=== PATIENT | female | born 1935 | race Caucasian/White ===

== ENCOUNTER 2017-10-06 21:02 | Inpatient (IN) | payer OTHER ==
[~2017-10-06] VITALS: Ht 160 cm; Wt 39.0 kg
[2017-10-06 21:20] VITALS: BP 148/94
[2017-10-06] MEDS ORDERED: LORAZEPAM 0.5 MG TABLET PO PRN (21:30)
[2017-10-06] MEDS ORDERED: MAG HYDROX/AL HYDROX/SIMETH 30 ML UDC PO PRN (21:30)
[2017-10-06] MEDS ORDERED: MAGNESIUM HYDROXIDE 30 ML UDC PO PRN (21:30)
[2017-10-06] MEDS ORDERED: ACETAMINOPHEN 325 MG TABLET PO PRN (21:30)
--- NOTE | 2017-10-06 21:30 | NUR ---
GPS ADMISSION NOTE, RECEIVED PATIENT FROM [facility]. PATIENT ARRIVED ON THIS UNIT AT 2120 VIA STRETCHER WITH 2 EMT ESCORTS AND PATIENT'S DAUGHTER. PATIENT ADMITTED ON A 5150 HOLD FOR GD. PER HOLD PATIENT CALLED 911 STATING SHE WAS VERY HUNGRY AND COULD NOT TURN OFF MICROWAVE, HAD NOT EATEN IN OVER 30 HOURS AND UNABLE TO OPEN ANY FOOD SHE HAD. ADVISED IT HAD BEEN ONGOING THAT COULD NOT MEET BASIC NEEDS AND WAS PLACED ON HOLD FOR GD. THE 5150 WAS REVIEWED AND THE DOCUMENTATION IN THE 5150 HOLD APPEARS TO REFLECT THE PRESENTATION OF THE PATIENT. UPON FACE TO FACE ASSESSMENT PATIENT IS CURRENTLY SITTING IN BED AWAKE, HAS NO S/S OR COMPLAINTS OF PAIN. PATIENT IS DISPLAYING NO S/S OF APPARENT DISTRESS. PATIENT BREATHING IS UNLABORED WITH EQUAL RISE AND FALL OF THE CHEST. PATIENT IS ALERT AND ORIENTATED X 1 AND 95% ON ROOM AIR. PATIENT ASSISTED WITH TURING AND REPOSITIONING Q2HR AND PRN FOR COMFORT AND CIRCULATION. PATIENT HAS NO NEEDS AT THIS TIME. PATIENT IS NOTED TO BEING CONFUSED, DISORGANIZED, UNCOOPERATIVE WITH ADMISSION AT TIMES REFUSING TO SIGN PAPERWORK. PATIENT IS UNDER THE PSYCHIATRIC CARE OF DR. PATTERSON AND THE MEDICAL CARE OF DR MCMULLEN. PATIENT BELONGINGS WERE INVENTORIED AND CHECKED FOR CONTRABAND. ALL CONTRABAND REMOVED AND STORED IN PATIENT HALLWAY LOCKER. PATIENT ADVANCED DIRECTIVES PREFERENCE, IMMUNIZATIONS QUESTIONER, NECESSARY PAPERWORK, SKIN ASSESSMENT DONE. PT REFUSED MRSA SWAB AND REFUSED PHOTOGRAPH. PATIENT ORIENTATED TO ROOM, FLOOR, AND STAFF WITH ALL QUESTIONS ANSWERED. PATIENT EDUCATED ON THE USE OF THE CALL GALINDO. PATIENT BED SIDE RAILS ARE UP X 2 FOR SAFETY. PATIENT BED IS LOCKED, LOW AND I WILL CONTINUE TO MONITOR THIS PATIENT Q 15 MIN WITH THE HELP OF STAFF TO MAINTAIN SAFETY.
--- NOTE | 2017-10-06 22:30 | NUR ---
GPS RN NOTE: AFTER ADMISSION COMPLETE, PATIENT GIVEN PUDDING SNACK AND PBJ. PATIENT WENT TO SLEEP. BED ALARM ON, SIDE RAILS UP X 2, LOW POSITION. WILL CONTINUE TO MONITOR FOR SAFETY.
[2017-10-06] MEDS ORDERED: NAPH15DR EACHEYE (22:33)
[2017-10-06] MEDS ORDERED: DONE10TA44 PO (22:33)
--- NOTE | 2017-10-07 03:45 | NUR ---
RN NOTE: PT WOKE AND ASKED FOR ASSISTANCE TO EAT SANDWICH. REALITY ORIENTATION PROVIDED. DAUGHTER'S NUMBER PROVIDED TO PT PER HER REQUEST TO CALL HER LATER TODAY. WILL CONTINUE TO MONITOR.
--- NOTE | 2017-10-07 06:30 | NUR ---
GPS RN NOTE: PT REFUSED AM LABS, AND AGAIN REFUSED PIC AND MRSA SWAB. REORIENTED TO UNIT, BUT PT STILL AOX1 AND REPEATS QUESTIONS. GIVEN COMB AT HER REQUEST, SHE BRUSHED HAIR AND THEN WAS GIVEN SNACKS BECAUSE PT TOO HUNGRY TO WAIT FOR BREAKFAST. WILL MONITOR.
[2017-10-07 08:00] VITALS: BP 101/64
[2017-10-07] MEDS ORDERED: NAPHAZOLINE HCL/PHENIR MAL 15 ML BOTTLE EACHEYE SCH (09:00)
[2017-10-07] MEDS: TETRAHYDROZOLINE HCL BOTTLE EACHEYE SCH ×2 (12:36→16:48)
--- NOTE | 2017-10-07 15:20 | NUR ---
INITIAL DISCHARGE PLAN: Per pt and pts daughter Violeta Fish [phone] pt will return home to [address] [place] [address] . Pts daughter will be caring for pt at home. Pts daughter Violeta stated to SW that pt was hospitalized due to pts daughter Kaye not providing pt with her basic needs such as food. Pts daughter Violeta has filed an APS report and case is active. SW will help form a safe and proper discharge in collaboration with .
[2017-10-07 15:59] VITALS: BP 116/76
[2017-10-07 20:09] VITALS: BP 121/66
--- NOTE | 2017-10-07 20:10 | NUR ---
GPS RN NOTE: RECEIVED PATIENT AWAKE AND IN BED AFTER VISIT BY DAUGHTER AND GRANDSON WHO BROUGHT HER FOOD FROM HOME WHICH SHE ATE WELL, NO S/S OR COMPLAINTS OF PAIN AT THIS TIME. PATIENT DISPLAYING NO S/S OF APPARENT DISTRESS AT THIS TIME. PATIENT BREATHING IS UNLABORED WITH EQUAL RISE AND FALL OF THE CHEST. PATIENT ALERT AND ORIENTED X 3 WITH A SPO2 95%. EDUCATED PATIENT ABOUT MEDICATIONS WHICH SHE STATES SHE WILL TAKE SHE WOULD LIKE TO GET HER MEMORY BETTER AND GO HOME. DISORGANIZED BUT COOPERATIVE AND TALKATIVE WHEN ENGAGED. NEEDS REORIENTATION. PATIENT DENIES SUICIDE IDEATIONS AND HOMICIDAL IDEATIONS AT THIS TIME. PATIENT IS AMBULATORY ANDHAS NO NEEDS AT THIS TIME. PATIENT EDUCATED ON THE USE OF THE CALL GALINDO. PATIENT BED SIDE RAILS UP X2 FOR SAFETY, BED IS LOCKED AND LOW WILL CONTINUE TO MONITOR AND MAINTAIN AND MAINTAIN SAFETY.
[2017-10-07] MEDS: DONEPEZIL 5 MG TABLET PO SCH (21:27)
[2017-10-07] MEDS: MIRTAZAPINE 15 MG TABLET PO SCH (22:26)
[2017-10-08 08:00] VITALS: BP 106/69
[2017-10-08] MEDS: TETRAHYDROZOLINE HCL BOTTLE EACHEYE SCH ×3 (09:04→17:10)
[2017-10-08 16:00] VITALS: BP 122/66
[2017-10-08 20:00] VITALS: BP 115/76
[2017-10-08] MEDS: DONEPEZIL 5 MG TABLET PO SCH (21:43)
[2017-10-08] MEDS: MIRTAZAPINE 15 MG TABLET PO SCH (21:43)
[2017-10-09 08:00] VITALS: BP 115/69
[2017-10-09] MEDS: TETRAHYDROZOLINE HCL BOTTLE EACHEYE SCH ×3 (08:53→16:00)
--- NOTE | 2017-10-09 14:19 | NUR ---
GPS/RN PROVIDED FAMILY MEMBER(DAUGHTER) WITH THE REPORT ON THE PT'S MEDICATION TAKEN AT THE HOSPITAL INCLUDING DOSAGE AND ADMINISTRATION TIME REQUESTED. WITHIN THAT TIME, PT'S DAUGHTER APPROACHED THE GLOBAL POSITION SYSTEM TECHNICIAN IN REGARDS TO THE MEDICATIONS AND STATED "I'M NOT SURE HE UNDERSTANDS MY QUESTION". UPON REVIEW OF THE MEDICATIONS, PT'S DAUGHTER BECAME AGITATED AND REQUESTED THAT SHE WANTS THE CARE FOR HER MOM TRANSFERRED TO FEMALE NURSE. THE WHOLE CONVERSATION WAS WITNESSED BY STAFF AT THE NURSING STATION SUCH ROLO/VP [facility] AND GALINA RN(3W)
--- NOTE | 2017-10-09 14:41 | NUR ---
GPS/RN PT'S CARE TRANSFERRED TO [facility] RN
[2017-10-09 16:20] VITALS: BP 104/65
[2017-10-09 20:06] VITALS: BP 114/83
[2017-10-09] MEDS: MIRTAZAPINE 15 MG TABLET PO SCH (21:27)
[2017-10-09] MEDS: DONEPEZIL 5 MG TABLET PO SCH (21:27)
[2017-10-10 08:00] VITALS: BP 116/69
[2017-10-10] MEDS: TETRAHYDROZOLINE HCL BOTTLE EACHEYE SCH ×3 (08:43→17:08)
--- NOTE | 2017-10-10 09:55 | NUR ---
SW received a phone call from MARK NOVAK IS PATIENTS APS WORKER PHONE [phone] who stated that pt needs placement. APS worker informed SW that pts daughters Allie and Kaye have filed for temporary conservatorship and that pts daughter Violeta is not involved with pts care. APS SW stated to SW that Violeta does not have authority to determine discharge needs for pt due to her not being involved with pts care and not considering pts best interest. APS worker also mentioned that pts daughters Allie and Kaye are looking into placement at an assisted living in [place].
--- NOTE | 2017-10-10 09:59 | NUR ---
UR NOTE: JOELLE contacted [email or web address] FUELS ENGINEER AJ DIRECT LINE [phone] FAX# [phone]. JOELLE left AJ a voicemail for call back.
--- NOTE | 2017-10-10 14:04 | NUR ---
JOELLE received phone call from pts daughter Violeta Fish [phone] inquiring about pts discharge plan. SW informed pts daughter that she has been in contact with APS social services designee regarding pts discharge to assisted living. Pts daughter agreed and stated that her sisters are not communicating with her and therefore would like SW to inform her of discharge and plan. SW stated to pts daughter that she would inform her of discharge and plan.
--- NOTE | 2017-10-10 15:40 | NUR ---
SW attempted to contact pts daughter Allie [phone] phone line was busy unable to leave message.
[2017-10-10 16:00] VITALS: BP 100/50
--- NOTE | 2017-10-10 19:30 | NUR ---
GPS RN NOTE, RECEIVED PATIENT AWAKE AND IN BED, NO S/S OR COMPLAINTS OF PAIN AT THIS TIME. PATIENT DISPLAYING NO S/S OF APPARENT DISTRESS AT THIS TIME. PATIENT BREATHING IS UNLABORED WITH EQUAL RISE AND FALL OF THE CHEST. PATIENT ALERT AND ORIENTED X 1 WITH A SPO2 94%. PATIENT IS MED COMPLIANT, DISORGANIZED, CONFUSED, COOPERATIVE, NEEDS REORIENTATION. PATIENT DENIES SUICIDE IDEATIONS AND HOMICIDAL IDEATIONS AT THIS TIME. PATIENT ASSISTED WITH TURNING AND REPOSITIONING Q2HR AND PRN FOR COMFORT AND CIRCULATION. PATIENT HAS NO NEEDS AT THIS TIME. PATIENT EDUCATED ON THE USE OF THE CALL GALINDO. PATIENT BED SIDE RAILS UP X2 FOR SAFETY, BED IS LOCKED AND LOW WILL CONTINUE TO MONITOR AND MAINTAIN AND MAINTAIN SAFETY.
[2017-10-10 19:44] VITALS: BP 115/68
[2017-10-10] MEDS: MIRTAZAPINE 15 MG TABLET PO SCH (22:07)
[2017-10-10] MEDS: QUETIAPINE FUMARATE 25 MG TABLET PO SCH (22:07)
[2017-10-10] MEDS: DONEPEZIL 5 MG TABLET PO SCH (22:07)
[2017-10-11 08:00] VITALS: BP 107/23
[2017-10-11] MEDS: TETRAHYDROZOLINE HCL BOTTLE EACHEYE SCH ×3 (09:00→17:38)
--- NOTE | 2017-10-11 10:05 | NUR ---
SW attempted to contact pts daughter Allie [phone] unable to leave message.
--- NOTE | 2017-10-11 10:06 | NUR ---
UR NOTE: JOELLE was contacted by [facility] WALLPAPER REMOVER STEAM AJ DIRECT LINE [phone] FAX# [phone] who informed JOELLE that pt is approved until 10/12/17. JOELLE has faxed clinical review for additional days to be approved. JOELLE will fax an updated clinical progress review on 10/14/17.
--- NOTE | 2017-10-11 11:12 | NUR ---
JOELLE contacted pts daughter Kaye [phone] to discuss placement and discharge. JOELLE informed pts daughter that pt will be discharged soon and placement needs to be decided for pt. Pts daughter understood and stated she would contact JOELLE later today with a decision.
--- NOTE | 2017-10-11 11:21 | NUR ---
JOELLE attempted to contact MARK NOVAK IS PATIENTS APS WORKER PHONE [phone] to discuss discharge plan. JOELLE unable to reach and left a voicemail for callback.
[2017-10-11 16:00] VITALS: BP 113/66
[2017-10-11] MEDS: DONEPEZIL 5 MG TABLET PO SCH (20:30)
[2017-10-11] MEDS: MIRTAZAPINE 15 MG TABLET PO SCH (20:31)
[2017-10-11] MEDS: QUETIAPINE FUMARATE 25 MG TABLET PO SCH (20:31)
[2017-10-11] MEDS: TEMAZEPAM 7.5 MG CAPSULE PO PRN (20:34)
[2017-10-11 20:42] VITALS: BP 104/67
[2017-10-12 08:00] VITALS: BP 100/55
--- NOTE | 2017-10-12 08:37 | NUR ---
JOELLE faxed SNF referral to Bill from [facility] Address: [address], [place] [address] .
--- NOTE | 2017-10-12 08:42 | NUR ---
JOELLE contacted pts daughter Kaye [phone] to discuss placement and discharge. Pts daughter stated that she needs more time to be able to move pt to assisted living. JOELLE explained to pts daughter that [employer] insurance only covered until 10/12/17 and discharge is anticipated for Tuesday. Pts daughter asked SW to refer pt to SNF JOELLE informed pts daughter that due to pt having a supplement medicare insurance she might not be eligible for SNF and insurance would have to approve. Pts daughter stated to JOELLE "Well we will see what happens," and hung up. JOELLE will follow up with pts daughter with updated placement information.
--- NOTE | 2017-10-12 09:00 | NUR ---
UR NOTE UPDATED: JOELLE contacted ALMA DELIA [place] [employer] MARINE ERECTOR DIRECT LINE [phone] for request to approve SNF placement. ALMA DELIA informed JOELLE that pt does not meet criteria for SNF and therefore request is denied. ALMA DELIA also informed JOELLE that pt is covered until Tuesday10/14/17.
--- NOTE | 2017-10-12 09:20 | NUR ---
JOELLE contacted pts daughter Kaye [phone] to inform her that [employer] insurance is only covering until Tuesday10/14/17 and denied SNF approval due to pt not meeting criteria. JOELLE explained to pts daughter that is pt is not discharged on Tuesday pt will be billed the Medicare rate which is about $1000/day for additional hospital days. Pts daughter responded with "well I'll see what I can do." and hung up the phone.
[2017-10-12] MEDS: TETRAHYDROZOLINE HCL BOTTLE EACHEYE SCH ×3 (09:28→16:35)
--- NOTE | 2017-10-12 09:38 | NUR ---
JOELLE was contacted by MARK NOVAK IS PATIENTS APS WORKER PHONE [phone] who requested additional hospital days for pt due to legal issues family is having with trying to sell pts assets to pay for Assisted Living. JOELLE informed APS social worker psychiatric that pt is only covered until Tuesday10/14/17 and was also denied approval for SNF placement. JOELLE informed APS that if pt is not discharged on 10/14/17 pt would be charged for additional days. APS JOELLE understood and stated she would work with the family.
--- NOTE | 2017-10-12 11:00 | NUR ---
SW received a phone call from pts daughters Test Engine Mechanic Jed Suh [phone] asking for information regarding pts discharge and requesting MD to review Neuropsychologist evaluation. Per [facility] guidelines SW is unable to speak to Test Engine Mechanic.
--- NOTE | 2017-10-12 11:27 | NUR ---
JOELLE contacted pts daughter Kaye [phone] to inform her that per [facility] guidelines SW was unable to speak to families Lead Clinical Research Coordinator. JOELLE told pts daughter that a Medicare Denial Letter will be faxed to her which states that she would be responsible for additional hospital stays. Pts daughter provided SW with her fax number [phone] and proceeded to be hostile with JOELLE asking "what would you do if this was your mother." JOELLE explained to pts daughter that pt care was being discussed and discharge is set for Tuesday10/14/17 due to insurance only covering until that day. Pts daughter hung up on SW.
--- NOTE | 2017-10-12 14:42 | NUR ---
JOELLE contacted pts daughter Kaye [phone] and left voicemail stating that JOELLE had contacted Ariadna from [facility] to assist with finding an Assisted Living placement for pt. JOELLE also provided pts daughter with Ariadna's [phone] contact information.
--- NOTE | 2017-10-12 15:10 | NUR ---
UR NOTE UPDATED: JOELLE contacted ALMA DELIA [place] [employer] GLOVE OPERATOR DIRECT LINE [phone] to request additional hospital days. ALMA DELIA informed JOELLE to fax clinical progress on Tuesday10/14/17 for additional covered days.
[2017-10-12 16:00] VITALS: BP 115/52
--- NOTE | 2017-10-12 16:02 | NUR ---
JOELLE spoke with Ariadna from [facility] [phone] who informed SW that she had found a Memory Care Facility/Assisted Living in [place]; [facility] in [place] [phone]. Ariadna also informed JOELLE that she spoke with pts daughter who is open to the idea of this placement option and within her marie range.
[2017-10-12] MEDS: ENSURE ENLIVE CHOC 237 ML CAN PO SCH (18:51)
--- NOTE | 2017-10-12 20:00 | NUR ---
GPS RN NOTE: RECEIVED PATIENT AWAKE AND IN SITTING IN BED VISITING WITH DAUGHTER, NO S/S OR COMPLAINTS OF PAIN AT THIS TIME. PATIENT DISPLAYING NO S/S OF APPARENT DISTRESS AT THIS TIME. PATIENT BREATHING IS UNLABORED WITH EQUAL RISE AND FALL OF THE CHEST. PATIENT ALERT AND ORIENTED X 1. REQUESTED THAT WE CALL TRUMP TO LET HIM KNOW THAT THE ROOM IS COLD STATING THAT SHE KNEW TRUMP AND WAS IN TRUMP TOWER. TICKET PLACED WITH ENGINEERING TO ADJUST TEMP AND REALITY ORIENTATION PROVIDED BUT PATIENT STILL ORIENTED X1. PT COOPERATIVE, NEEDS ENCOURAGEMENT TO TAKE MEDS. PATIENT DENIES SUICIDE IDEATIONS AND HOMICIDAL IDEATIONS AT THIS TIME. PATIENT IS AMBULATORY AND HAS NO NEEDS AT THIS TIME. PATIENT EDUCATED ON THE USE OF THE CALL GALINDO. PATIENT BED SIDE RAILS UP X2 FOR SAFETY, BED IS LOCKED AND LOW WILL CONTINUE TO MONITOR AND MAINTAIN AND MAINTAIN SAFETY.
[2017-10-12 20:28] VITALS: BP 117/60
[2017-10-12] MEDS: DONEPEZIL 5 MG TABLET PO SCH (21:11)
[2017-10-12] MEDS: MIRTAZAPINE 15 MG TABLET PO SCH (21:12)
[2017-10-12] MEDS: QUETIAPINE FUMARATE 25 MG TABLET PO SCH (21:12)
[2017-10-13 06:04] VITALS: BP 124/51
[2017-10-13 08:00] VITALS: BP 103/75
--- NOTE | 2017-10-13 08:13 | NUR ---
[facility] Talent Development Director Alecbriseida Lombardirod [phone] to provide him with AJ case packer and sealer at [facility]'s contact information.
--- NOTE | 2017-10-13 08:14 | NUR ---
Pts daughter Allie [phone] left a voicemail on SW phone requesting chest x-rays for pt due to facility needing them. Name of facility is unknown. Pts daughter did not provide that information.
[2017-10-13] MEDS: ENSURE ENLIVE CHOC 237 ML CAN PO SCH ×2 (08:59→16:41)
[2017-10-13] MEDS ORDERED: QUETIAPINE FUMARATE 25 MG TABLET PO SCH (09:00)
[2017-10-13] MEDS: TETRAHYDROZOLINE HCL BOTTLE EACHEYE SCH ×3 (09:02→16:42)
--- NOTE | 2017-10-13 10:22 | NUR ---
Social Wrk Note: Received phone call from patient's probate staff attorney, Ed [phone]. He advised that he initiated probate conservatorship and that there is a hearing on 10/14/17. He is aware that this patient needs placement now. This social media director explained that serjio's dementia is not grounds to keep her on an acute psychiatric unit. The situation at home where she has been unable to function has been present for over a year with APs minimally involved and not bringing about any change.He was advised that when pt. is no longer meeting acute criteria if family block discharge they could be responsible for payment for her stay.he wants to call [employer]. Aria agreed to provide him with the phone number for AJ at [employer]. Per Ed, he and azra are trying to secure placement for pt. This short story writer spoke with carmle Kaye [phone] who wanted us to review neuropsych. testing done by Dr Albarado, clinical psychologist. Report confirms significant dementia of the Alzheimer's type. This short story writer tried to explained to Kaye that we cannot keep a pt. on our acute unit for dementia and that pt.is not presenting any acute symptoms. She was advised to expect and plan for discharge on TuesdayOctober 14. Aria Osborn, assigned social media director was notified of this conversation with both parties. They were advised that Aria would assist them with securing placement for pt. too.
--- NOTE | 2017-10-13 11:45 | NUR ---
RN NOTES NOTIFIED JULIA JONES RE: ORDER FOR CXR. PER JULIA, SW AND CM NEED TO CONTACT JULIA RE: INSURANCE PURPOSES.
--- NOTE | 2017-10-13 11:50 | NUR ---
RN NOTES SANDFILL OPERATOR CAME IN TO SEE PATIENT. SW ACCOMPANIED SANDFILL OPERATOR TO PT'S ROOM.
--- NOTE | 2017-10-13 12:10 | NUR ---
RN NOTES COUNTER INTELLIGENCE AGENT LEFT.
--- NOTE | 2017-10-13 12:35 | NUR ---
[facility] court appointed Specialty Plant Supervisor Saravanan Pineda [phone] visited pt to complete an evaluation with pt. Pt has a court hearing tomorrow 10/14/17 for probate conservatorship.
--- NOTE | 2017-10-13 12:39 | NUR ---
JOELLE spoke with Probate Conservatorship Systems Design Engineer Jed Suh [phone] to discuss placement options with him and also to inform him that JOELLE will fax progress clinical notes on 10/14/17 to insurance for additional coverage.
--- NOTE | 2017-10-13 14:56 | NUR ---
JOELLE received a phone call from Karmen Holder, mental health program manager of the Memory Care Program at [facility] Address: [address], [place] [address] [phone]. Who is requesting information for pts admission. JOELLE provided Karmen with JOELLE's fax number to receive [phone] forms to be completed by MD in order for pt to be considered for placement.
--- NOTE | 2017-10-13 15:04 | NUR ---
JOELLE spoke with Ariadna from [facility] [phone] who informed SW that she needs chest x-rays, medications, and PCP forms faxed to [facility] [address], [place] [address] . for possible admissions. JOELLE informed Ariadna that she would request chest-xrays for pt.
[2017-10-13 16:21] VITALS: BP 97/59
--- NOTE | 2017-10-13 16:24 | NUR ---
RN NOTES PT SEEN AND EXAMINED BY DR. LEONARDO Justin/ JOELLE AT BEDSIDE.
--- NOTE | 2017-10-13 17:16 | NUR ---
RN NOTES DR. SURINDER PAYNE, PT'S PREVIOUS PSYCHIATRY DOCTOR, CALLED TO INFORM US THAT SHE IS VERY CONCERNED ABOUT PT BEING DISCHARGED. NOTIFIED DR. PATTERSNO RE: THE CALL AND STATES THAT PT WONT BE DISCHARGING ANYTIME SOON. DR. PAYNE MADE AWARE. PHONE NUMBER [phone]. Addendum: 10/13/17 at 1732 by KATHY MORGAN RN PER DR. PAYNE, TO PLEASE NOT GIVE HER NUMBER TO PT'S DAUGHTERS.
--- NOTE | 2017-10-13 19:30 | NUR ---
GPS RN NOTE, RECEIVED PATIENT AWAKE AND IN BED, NO S/S OR COMPLAINTS OF PAIN AT THIS TIME. PATIENT DISPLAYING NO S/S OF APPARENT DISTRESS AT THIS TIME. PATIENT BREATHING IS UNLABORED WITH EQUAL RISE AND FALL OF THE CHEST. PATIENT ALERT AND ORIENTED X 1 -2 WITH A SPO2 95%. PATIENT IS COMPLIANT WITH MEDS, DISORGANIZED, ANXIOUS, CONFUSED AT TIMES, ISOLATIVE, COOPERATIVE, NEEDS REORIENTATION. PATIENT DENIES SUICIDE IDEATIONS AND HOMICIDAL IDEATIONS AT THIS TIME. PATIENT ASSISTED WITH TURNING AND REPOSITIONING Q2HR AND PRN FOR COMFORT AND CIRCULATION. PATIENT HAS NO NEEDS AT THIS TIME. PATIENT EDUCATED ON THE USE OF THE CALL GALINDO. PATIENT BED SIDE RAILS UP X2 FOR SAFETY, BED IS LOCKED AND LOW WILL CONTINUE TO MONITOR AND MAINTAIN AND MAINTAIN SAFETY.
[2017-10-13 20:00] VITALS: BP 132/57
[2017-10-13] MEDS: MIRTAZAPINE 15 MG TABLET PO SCH (21:39)
[2017-10-13] MEDS: QUETIAPINE FUMARATE 25 MG TABLET PO SCH (21:39)
[2017-10-13] MEDS: DONEPEZIL 5 MG TABLET PO SCH (21:39)
[2017-10-13] MEDS: DIVALPROEX SODIUM 125 MG CAP.SPRINK PO SCH (21:39)
[2017-10-14 08:00] VITALS: BP 115/59
[2017-10-14] MEDS: QUETIAPINE FUMARATE 25 MG TABLET PO SCH ×3 (08:15→21:35)
[2017-10-14] MEDS: ENSURE ENLIVE CHOC 237 ML CAN PO SCH ×2 (08:16→16:36)
[2017-10-14] MEDS: TETRAHYDROZOLINE HCL BOTTLE EACHEYE SCH ×3 (08:17→16:36)
--- NOTE | 2017-10-14 10:01 | NUR ---
SW received email correspondence from pts daughter Kaye that states family will provide transportation for pt when discharged.
--- NOTE | 2017-10-14 10:41 | NUR ---
UR NOTE UPDATE: JOELLE faxed clinical progress notes and medication list to ALMA DELIA counter caser at [employer] [facility] [phone].
--- NOTE | 2017-10-14 11:46 | NUR ---
JOELLE faxed [phone] Physicians Report to Karmen Holder Embedded Software Developer for the Memory Care Program at [facility] Address: [address] [place] [address], [place] [phone] .
--- NOTE | 2017-10-14 11:58 | NUR ---
JOELLE contacted pts daughter Kaye [phone] to inform her that 602 physicians report has been faxed to [facility] and also JOELLE informed pts daughter that pt will be assigned to [facility] and provided pts daughter with her contact information.
[2017-10-14 16:27] VITALS: BP 114/62
[2017-10-14 20:00] VITALS: BP 140/71
[2017-10-14] MEDS: DIVALPROEX SODIUM 125 MG CAP.SPRINK PO SCH (21:34)
[2017-10-14] MEDS: MIRTAZAPINE 15 MG TABLET PO SCH (21:35)
[2017-10-14] MEDS: DONEPEZIL 5 MG TABLET PO SCH (21:36)
[2017-10-15 08:00] VITALS: BP 119/70
[2017-10-15] MEDS: QUETIAPINE FUMARATE 25 MG TABLET PO SCH ×3 (08:26→21:19)
[2017-10-15] MEDS: TETRAHYDROZOLINE HCL BOTTLE EACHEYE SCH ×3 (08:28→16:58)
[2017-10-15] MEDS: ENSURE ENLIVE CHOC 237 ML CAN PO SCH ×2 (08:28→16:58)
[2017-10-15 16:19] VITALS: BP 104/53
[2017-10-15 20:00] VITALS: BP 132/70
[2017-10-15] MEDS: DIVALPROEX SODIUM 125 MG CAP.SPRINK PO SCH (21:19)
[2017-10-15] MEDS: MIRTAZAPINE 15 MG TABLET PO SCH (21:19)
[2017-10-15] MEDS: DONEPEZIL 5 MG TABLET PO SCH (21:19)
[2017-10-16 08:00] VITALS: BP 134/71
[2017-10-16] MEDS: TETRAHYDROZOLINE HCL BOTTLE EACHEYE SCH ×3 (09:13→17:40)
[2017-10-16] MEDS: ENSURE ENLIVE CHOC 237 ML CAN PO SCH ×2 (09:13→17:41)
[2017-10-16] MEDS: QUETIAPINE FUMARATE 25 MG TABLET PO SCH ×3 (09:13→21:35)
[2017-10-16 16:21] VITALS: BP 132/77
[2017-10-16 20:12] VITALS: BP 108/72
[2017-10-16] MEDS: DONEPEZIL 5 MG TABLET PO SCH (21:36)
[2017-10-16] MEDS: MIRTAZAPINE 15 MG TABLET PO SCH (21:36)
[2017-10-16] MEDS: DIVALPROEX SODIUM 125 MG CAP.SPRINK PO SCH (21:36)
[2017-10-16] MEDS: TEMAZEPAM 7.5 MG CAPSULE PO PRN (21:48)
--- NOTE | 2017-10-16 21:48 | NUR ---
GPS NOTE. C/O " CAN YOU PLEASE GIVE ME SOMETHING TO HELP ME SLEEP." RESTORIL 7.5 MG PO GIVEN ORDERED. WILL REEVALUATE AND CONTINUE TO MONITOR FOR SAFETY.
[2017-10-17 08:00] VITALS: BP 121/68
[2017-10-17] MEDS: TETRAHYDROZOLINE HCL BOTTLE EACHEYE SCH ×3 (08:34→17:14)
[2017-10-17] MEDS: QUETIAPINE FUMARATE 25 MG TABLET PO SCH ×3 (08:34→21:42)
[2017-10-17] MEDS: ENSURE ENLIVE CHOC 237 ML CAN PO SCH ×2 (08:35→17:15)
--- NOTE | 2017-10-17 13:53 | NUR ---
JOELLE contacted pts daughter Kaye [phone] and introduced herself as the person who is taking charge of the pt's discharge plan.
--- NOTE | 2017-10-17 13:54 | NUR ---
JOELLE spoke to Karmen ([phone] ext [phone]) to set up a time for the pt to be assessed. 10 AM on 10/18/17 was discussed.
[2017-10-17 16:00] VITALS: BP 112/72
[2017-10-17 20:27] VITALS: BP 107/50
[2017-10-17] MEDS: MIRTAZAPINE 15 MG TABLET PO SCH (21:42)
[2017-10-17] MEDS: DONEPEZIL 5 MG TABLET PO SCH (21:42)
[2017-10-17] MEDS: DIVALPROEX SODIUM 125 MG CAP.SPRINK PO SCH (21:42)
[2017-10-18 08:25] VITALS: BP 100/64
[2017-10-18] MEDS: TETRAHYDROZOLINE HCL BOTTLE EACHEYE SCH ×3 (08:39→16:13)
[2017-10-18] MEDS: QUETIAPINE FUMARATE 25 MG TABLET PO SCH ×3 (08:39→21:09)
[2017-10-18] MEDS: ENSURE ENLIVE CHOC 237 ML CAN PO SCH ×2 (09:13→16:13)
--- NOTE | 2017-10-18 13:17 | NUR ---
SW met with the assessors from [place] from 10-11 AM and informed them to make a decision as soon as possible.
--- NOTE | 2017-10-18 13:17 | NUR ---
JOELLE called Theo ([phone]) and informed him that the assessors from [place] came to assess the pt today and will be making a decision soon. Once that happens, we can move forward with the discharge process.
--- NOTE | 2017-10-18 13:18 | NUR ---
JOELLE spoke to Violeta ([phone]), the pt's daughter, and informed her about the current discharge planning state.
--- NOTE | 2017-10-18 14:05 | NUR ---
JOELLE contacted pts daughter Kaye [phone] and informed her that [facility] denied admission. JOELLE then informed her that other options are going to be pursued.
--- NOTE | 2017-10-18 14:05 | NUR ---
JOELLE spoke to Karmen ([phone]) from [place] and she stated that the pt was denied admission.
--- NOTE | 2017-10-18 14:11 | NUR ---
JOELLE called Theo ([phone]) and informed him that the pt was denied by [facility]. He referred the SW to [facility] ([phone]).
--- NOTE | 2017-10-18 14:22 | NUR ---
JOELLE called Jed Suh ([phone]) and discussed possible discharge options. He stated that [facility] would not be an appropriate place for the pt and to reconnect with [facility] ([phone]).
--- NOTE | 2017-10-18 15:09 | NUR ---
JOELLE contacted Daily from [facility] ([phone]) and provided her with the pt's daughter's phone number to set up placement with her Board and Care.
--- NOTE | 2017-10-18 16:20 | NUR ---
Daily from [facility] ([phone]) called the SW and informed her that the pt's daughter, Kaye ([phone]), denied the Board and Care placement option that she presented.
--- NOTE | 2017-10-18 16:35 | NUR ---
JOELLE spoke to pt's daughter, Kaye ([phone]), and informed her that the pt's insurance will not pay for a locked facility in [place] and therefore it would have to be paid for out of pocket. JOELLE will call the daughter tomorrow with estimates regarding how much these facilities would cost.
--- NOTE | 2017-10-18 16:45 | NUR ---
GPS/RN-NOTES RECEIVED PATIENT AWAKE,ALERT SITTING IN HER BED,CALM NO ACUTE DISTRESS NOTED.ALL NEEDS ATTENDED AND ANTICIPATED.WILL CONT. MONITORING Q15 MINS. FOR SAFETY AND BEHAVIORS.
[2017-10-18 17:02] VITALS: BP 140/70
[2017-10-18 20:37] VITALS: BP 127/61
[2017-10-18] MEDS: MIRTAZAPINE 15 MG TABLET PO SCH (21:09)
[2017-10-18] MEDS: DIVALPROEX SODIUM 125 MG CAP.SPRINK PO SCH (21:09)
[2017-10-18] MEDS: DONEPEZIL 5 MG TABLET PO SCH (22:15)
[2017-10-19 07:45] VITALS: BP 113/70
[2017-10-19 08:00] VITALS: BP 113/70
[2017-10-19] MEDS: ENSURE ENLIVE CHOC 237 ML CAN PO SCH ×2 (08:28→17:10)
[2017-10-19] MEDS: QUETIAPINE FUMARATE 25 MG TABLET PO SCH ×3 (08:35→21:30)
[2017-10-19] MEDS: TETRAHYDROZOLINE HCL BOTTLE EACHEYE SCH ×3 (08:35→17:07)
--- NOTE | 2017-10-19 09:39 | NUR ---
SW called two locked facilities and received quotes from them regarding their monthly rates: Chris from [facility] ([phone]) and he stated that it is $245/day and $7350/month Bill from [facility] ([phone]) and he stated that it is $235/day and $7050/month
--- NOTE | 2017-10-19 09:47 | NUR ---
PT. REFUSED TO HAVE HER BLOOD DRAWN. PT. WAS EXPLAINED THE REASON FOR THE BLOOD DRAW, AND PT. VERBALIZED UNDERSTANDING, AND STRONGLY REFUSED.
--- NOTE | 2017-10-19 10:13 | NUR ---
SW spoke to pt's daughter, Kaye ([phone]), and informed her of the [place] of [place] The daughter denied these options due to the cost. Daughter informed the SW that she wanted to access the pt's medical records so she was transferred to medical records at the end of the call.
--- NOTE | 2017-10-19 10:55 | NUR ---
Theo ([phone]) called the SW and asked her to fill out a physician's report form so that a different director of casework services can find an assisted living for the pt.
--- NOTE | 2017-10-19 15:32 | NUR ---
JOELLE informed Theo ([phone]) that the report cannot be completed due to a physician's signature until tomorrow morning.
[2017-10-19 16:00] VITALS: BP 105/65
[2017-10-19 16:12] VITALS: BP 105/65
--- NOTE | 2017-10-19 17:11 | NUR ---
PT. FINISHED ENSURE BEFORE SCANNING, AND BOTTLE WAS DISPOSED.
[2017-10-19] MEDS: NAPHAZOLINE HCL/PHENIR MAL 15 ML BOTTLE EACHEYE SCH ×2 (17:23→17:28)
[2017-10-19 20:49] VITALS: BP 100/62
[2017-10-19] MEDS: DONEPEZIL 5 MG TABLET PO SCH (21:30)
[2017-10-19] MEDS: DIVALPROEX SODIUM 125 MG CAP.SPRINK PO SCH (21:30)
[2017-10-19] MEDS: MIRTAZAPINE 15 MG TABLET PO SCH (21:30)
[2017-10-20 08:00] VITALS: BP 101/55
[2017-10-20] MEDS: NAPHAZOLINE HCL/PHENIR MAL 15 ML BOTTLE EACHEYE SCH ×3 (08:01→16:22)
[2017-10-20] MEDS: QUETIAPINE FUMARATE 25 MG TABLET PO SCH ×3 (08:01→21:56)
[2017-10-20] MEDS: ENSURE ENLIVE CHOC 237 ML CAN PO SCH ×2 (08:51→16:52)
--- NOTE | 2017-10-20 10:21 | NUR ---
JOELLE and Dr. Clari Argueta filled out a physician's report together per Theo ([phone]), the nurse outreach case manager's, request. JOELLE then faxed the form over to ([phone]).
--- NOTE | 2017-10-20 15:17 | NUR ---
Theo ([phone]) returned the SW's call and stated that the pt will remain at the hospital over the weekend and suggested that the SW start a medicare denial process through the physician. Addendum: 10/24/17 at 1451 by TJ LAI Per Theo, the pt was authorized to stay at the hospital through the weekend so until 10/23/17.
--- NOTE | 2017-10-20 15:33 | NUR ---
Social Work Discharge Planning Note: After discussion with Beena MACIAS, this health and social care teacher called Kaye [phone] and suggested she consider placement offered by our health and social care teacher. She rejected [facility] and [facility] facilities. Kaye said they wanted [facility] and that they " needed Dr Rueda to change the note to indicate there is no psychosis ". Dr Rueda will evaluate pt.tomorrow and write the latest progress note. Advised Kaye that Dr Rueda cannot chanpe pateint's initial presentation and that per Dr Rueda patient needs to remain on Seroquel. Beena MACIAS will fax this note to [facility] tomorrow. Kaye daughter was advised of this. Left a message for Ed probate research attorney [phone] re update. Kaye states that Aria Ulrich from the medical group is also asisting them. Kaye will explore [facility]'s resistance to patient and she will visit another facility tomorrow she says. Patient has no funds and only has $100 000.00 equity in her condo. which has not been sold per Kaye. Beena will follow up.
--- NOTE | 2017-10-20 15:35 | NUR ---
SW spoke to pt's daughter, Kaye ([phone]), and informed her that the pt has showered since she was admitted and that she stated that she will be taking one later today. Daughter had asked the SW to help the pt shower.
[2017-10-20 16:00] VITALS: BP_SYST 103; BP_DIAS 53; BP_DIAS 80
--- NOTE | 2017-10-20 16:29 | NUR ---
Dr. Rueda notified that pt. refused valproic acid level today and to give Depakote po tonight and do valproic level tomorrow.
[2017-10-20 20:00] VITALS: BP 104/59
[2017-10-20] MEDS: DONEPEZIL 5 MG TABLET PO SCH (21:56)
[2017-10-20] MEDS: DIVALPROEX SODIUM 125 MG CAP.SPRINK PO SCH (21:56)
[2017-10-20] MEDS: MIRTAZAPINE 15 MG TABLET PO SCH (21:56)
[2017-10-21 08:00] VITALS: BP 104/89
[2017-10-21] MEDS: NAPHAZOLINE HCL/PHENIR MAL 15 ML BOTTLE EACHEYE SCH ×3 (08:39→16:13)
[2017-10-21] MEDS: QUETIAPINE FUMARATE 25 MG TABLET PO SCH ×3 (08:40→21:39)
[2017-10-21] MEDS: ENSURE ENLIVE CHOC 237 ML CAN PO SCH ×2 (09:57→16:13)
--- NOTE | 2017-10-21 12:35 | NUR ---
SW spoke to pt's daughter, Kaye ([phone]), who will fax over a form for the SW to have completed and returned for a placement option.
--- NOTE | 2017-10-21 15:13 | NUR ---
DR. PATTERSON NOTIFIED THAT PT. REFUSED FOR DEPAKOTE LEVEL TODAY 2X AND SAID TO GIVE THE NIGHT DOSE OF DEPAKOTE.
--- NOTE | 2017-10-21 15:43 | NUR ---
JOELLE spoke to pt's daughter, Kaye ([phone]), and informed her that the pt does not have her drivers license or any identification/health care cards in her possession. JOELLE also confirmed that she received two faxes of applications to complete and fax back to a facility called [facility] where the pt will be discharged to on Tuesday.
[2017-10-21 16:00] VITALS: BP 118/69
[2017-10-21 20:00] VITALS: BP 140/70
[2017-10-21] MEDS: DONEPEZIL 5 MG TABLET PO SCH (21:39)
[2017-10-21] MEDS: DIVALPROEX SODIUM 125 MG CAP.SPRINK PO SCH (21:39)
[2017-10-21] MEDS: MIRTAZAPINE 15 MG TABLET PO SCH (21:40)
[2017-10-21] MEDS: TEMAZEPAM 7.5 MG CAPSULE PO PRN (21:53)
--- NOTE | 2017-10-21 21:53 | NUR ---
GPS NOTES. C/O " GET ME SOMETHING FOR SLEEP WOULD YOU? " RESTORIL 7.5 MG PO GIVEN ORDERED. WILL CONTINUE TO MONITOR FOR SAFETY.
[2017-10-22] MEDS: ENSURE ENLIVE CHOC 237 ML CAN PO SCH ×2 (07:46→17:24)
[2017-10-22 08:00] VITALS: BP 103/54
[2017-10-22] MEDS: QUETIAPINE FUMARATE 25 MG TABLET PO SCH ×3 (08:38→21:23)
[2017-10-22] MEDS: NAPHAZOLINE HCL/PHENIR MAL 15 ML BOTTLE EACHEYE SCH ×3 (08:40→17:24)
--- NOTE | 2017-10-22 10:48 | NUR ---
Received a call from Kaye the daughter and authorizing the staff to disclose information to [facility] (Nhi). Verified to the retail route supervisor and aids social worker Jackeline if daughter can give consent via phone to disclose information and said ok to disclose information..
[2017-10-22 16:00] VITALS: BP 104/68
--- NOTE | 2017-10-22 19:57 | NUR ---
RECEIVED PATIENT LYING IN BED, ALERT AND ORIENTED X 2, WELL GROOMED CALM AND IN NO APPARENT DISTRESS. PATIENT SAID " YOU ARE SUCH A NICE PERSON" UPON GREETING HER. DENIES PAIN, SI AND HI. BED IN LOW POSITION WITH UPPER SIDE RAILS UP X 2, CALL GALINDO IN REACH, DENIES ANY NEEDS AT THIS TIME. WILL CONTINUE TO MONITOR FOR COMFORT AND SAFETY Q15 MINUTES.
[2017-10-22 20:00] VITALS: BP 113/59
[2017-10-22] MEDS: MIRTAZAPINE 15 MG TABLET PO SCH (21:23)
[2017-10-22] MEDS: DIVALPROEX SODIUM 125 MG CAP.SPRINK PO SCH (21:23)
[2017-10-22] MEDS: DONEPEZIL 5 MG TABLET PO SCH (21:23)
[2017-10-23 08:00] VITALS: BP 117/65
[2017-10-23] MEDS: ENSURE ENLIVE CHOC 237 ML CAN PO SCH ×2 (08:46→16:45)
[2017-10-23] MEDS: QUETIAPINE FUMARATE 25 MG TABLET PO SCH ×3 (08:51→21:11)
[2017-10-23] MEDS: NAPHAZOLINE HCL/PHENIR MAL 15 ML BOTTLE EACHEYE SCH ×3 (08:51→16:45)
[2017-10-23 16:00] VITALS: BP 122/64
[2017-10-23 20:26] VITALS: BP 111/43
[2017-10-23] MEDS: DIVALPROEX SODIUM 125 MG CAP.SPRINK PO SCH (21:11)
[2017-10-23] MEDS: DONEPEZIL 5 MG TABLET PO SCH (21:11)
[2017-10-23] MEDS: MIRTAZAPINE 15 MG TABLET PO SCH (21:11)
[2017-10-24] MEDS: ENSURE ENLIVE CHOC 237 ML CAN PO SCH (08:14)
[2017-10-24] MEDS: NAPHAZOLINE HCL/PHENIR MAL 15 ML BOTTLE EACHEYE SCH ×2 (08:15→12:49)
[2017-10-24] MEDS: QUETIAPINE FUMARATE 25 MG TABLET PO SCH ×2 (08:15→12:49)
[2017-10-24 08:55] VITALS: BP 109/62
--- NOTE | 2017-10-24 09:48 | NUR ---
SW spoke to pt's daughter, Kaye ([phone]), who informed the SW that the pt will be admitting to [facility] located at [address], [place] [address]; ([phone]). The daughter provided the SW will the psychiatrist and pick and shovel worker phone numbers as well as the transport.
--- NOTE | 2017-10-24 09:50 | NUR ---
JOELLE spoke to Nhi ([phone]) from the [facility] and faxed over a Physicians Report to [phone].
--- NOTE | 2017-10-24 12:29 | NUR ---
JOELLE faxed the pt's insurance information to [facility] (fax #: [phone])
--- NOTE | 2017-10-24 12:37 | NUR ---
Discharge note: Pt was discharged to [facility] located at [address], [place] [address]; ([phone]). JOELLE spoke to Nhi about this admission and faxed over the appropriate paperwork to confirm admission. Pts daughter, Kaye ([phone]), arranged transportation with [facility] for 1PM which was confirmed by Cherelle at this transportation. Upon discharge, the pt denied suicidal and homicidal ideation as well as visual and auditory hallucinations. Pts mood and affect were calm and euthymic upon discharge. The pt was referred to be under the care of Dr. Denis Milner located at [address], [address], [place] [address]; and will be under the care of her primary physician who is Dr. Kerline Fair located at [address], [address], [place] [address]; ([phone]).
--- NOTE | 2017-10-24 13:30 | NUR ---
GPS RN NOTE: PT DISCHARGE TO [facility] AT [address], [place], [place] [address] VIA [facility] ARRANGED BY PT DAUGHTER AYLIN. PT IN STABLE CONDITION NO S/S DISTRESS NOTED PT COMPLIANT WITH MEDICATIONS, DENIES SUICIDAL AND HOMICIDAL IDEATION DENIES VISUAL AND AUDITORY HALLUCINATIONS,A/OX 3, AMBULATORY SELF CARE, VSS, SKIN CLEAN AND INTACT .DR PATTERSON AWARE T.O. ORDER AGREED FOR DC HOLD CONTINUE MEDICATIONS DC PRNS WITH MARI NUMBER. MEDICATIONS RECONCILIATION FAX TO [facility] SPOKE WITH CIERRA SHE WILL FAX IT TO PHARMACY. DR PRETTY NOTIFIED OF DC TO CONTINUE MEDICATIONS DC PRN. PT EXPLAIN MEDICATION MGMT AND AGREED FOR DISCHARGE.
== END 2017-10-24 13:15 | DRG 885 ==
LOC: GPS 21:02
PROVIDERS: ADMIT Psychiatry & Neurology Psychosomatic Medicine; ATTEND Nurse Practitioner Acute Care
DX: F32.3 Major depressive disorder, single episode, severe with psychotic features (principal); G93.40 Encephalopathy, unspecified; F23 Brief psychotic disorder; F39 Unspecified mood [affective] disorder; H10.10 Acute atopic conjunctivitis, unspecified eye; Z73.6 Limitation of activities due to disability; F03.90 Unspecified dementia, unspecified severity, without behavioral disturbance, psychotic disturbance, mood disturbance, and anxiety; F41.9 Anxiety disorder, unspecified
CPT/HCPCS: 71045-TC; A4606; Z7610